=== PATIENT | male | born 1955 | race Caucasian/White ===

== ENCOUNTER 2021-10-15 14:46 | Inpatient (IN) | payer MEDICARE, SELFPAY ==
[2021-10-15] VITALS (11 sets, daily range): BP systolic 190–202; BP diastolic 110–115; PULSE 64–88; RESP 18–24; TEMP 36.6–36.9; O2SAT 93–97; BMI 35.4; BMI 37.8
--- NOTE | 2021-10-15 14:54 | ED_ITS ---
HPI - General Adult General: Chief complaint: Shortness of Breath/Dyspnea Stated complaint: ELEVATED BLOOD PRESSURE Time Seen by Provider: 10/15/21 14:50 History of Present Illness: Mr. Jones is a 66-year-old gentleman with significant past medical history of COPD, LUZ MARIA, hypertension, hyperlipidemia who presents to the emergency department due to various concerns. His primary concern is that his blood pressure has been high the past few days. He reports compliance with his medication regimen however has had blood pressure readings at home of greater than 230 systolic. He may have had a recent change in medication due to an interaction that was somewhat vague on details. Xavier tionally he notes increased falls, confusion, and generalized worsening of shortness of breath. He does not have a baseline oxygen requirement and is exposed to wood smoke for heat which flares his lung disease. He notes worsening symptoms on exertion. Overall course of symptoms has been worsening. Intensity is moderate. Cough has been mildly productive. Some improvement with albuterol though patient is no longer on his Symbicort.. No other specific changes in health, exacerbating, or alleviating factors identified. Onset (ago): day(s) Severity: moderate Review of Systems General: Reports: 10 or more systems reviewed and unremarkable except in HPI and below PFSH ED PFSH: Medical History COPD (chronic obstructive pulmonary disease) HLD (hyperlipidemia) HTN (hypertension) LUZ MARIA (obstructive sleep apnea) Smoking addiction Surgical History Hx of tonsillectomy Family History Mother CAD (coronary artery disease) Diabetes Social History Smoking and tobacco status: current every day smoker Alcohol intake: current Alcohol intake frequency: few times a week Substance/Drug Use: current Substance/Drug use type: Marijuana Lives independently: Yes Household members: spouse Housing: Other Details: [facility] Marital status: Physical Exam Const: COMMON NORMALS: alert GENERAL APPEARANCE: cooperative, well developed and ill appearing (Chronically) HENMT: COMMON NORMALS: normocephalic and atraumatic HEAD & SCALP: normocephalic and atraumatic OTHER: Dry mucous membranes Eye: COMMON NORMALS: conjunctivae normal CONJUNCTIVA: Yes conjunctivae normal SCLERA: sclerae normal Neck/C-Spine: COMMON NORMALS: supple GENERAL: Yes trachea midline Resp: EFFORT & INSPECTION: Yes tachypneic AUSCULTATION: diminished lung sounds Cardio: COMMON NORMALS: regular rate and regular rhythm RATE: regular rate RHYTHM: regular rhythm GI: COMMON NORMALS: Soft to palpation PALPATION: Yes Soft to palpation and No Tenderness to palpation present (GI) PERCUSSION: normal to percussion OTHER: Umbilical hernia soft without overlying skin changes, easily reducible Extremity: GENERAL: Yes normal exam except as noted and No edema Neuro: COMMON NORMALS: moves all extremities SENSORIUM/ORIENTATION: Yes alert and No Orientation impaired Psych: COMMON NORMALS: mental status grossly normal and Normal thought process present THOUGHT PROCESS: Normal thought process present Course ED course: - Patient was seen and evaluated by me at bedside - Patient placed on cardiac monitors, IV access obtained - Initial evaluation notable for exam as above - Labs and xrays personally interpreted by me. EKG from 1813 and 1500 pers onally interpreted by me showing sinus rhythm with right bundle branch block. No STEMI. - RT treatment ordered. COPD exacerbation treatment ordered. - Labs notable for no leukocytosis, normal hemoglobin. Metabolic panel without acute electrolyte derangement, perhaps mild intravascular dehydration. ABG on 3 L nasal cannula notable for hypoxemia. - Imaging notable for no lobar consolidation or pneumothorax - Upon serial reexamination after treatment the patient was somewhat improved though still remains tachypneic and requiring supplemental oxygen with oxygen is a saturation to mid to high 80s without supplemental oxygen. - Based on patient history, evaluation, and testing as interpreted the most likely cause of the patient's condition is COPD exacerbation - The results of ED evaluation were discussed with the patient including plan for admission due to requirement for level of care not available if discharged to prevent significant worsening/deterioration. - Admitting service was contacted and Dr Franco with the hospitalist service agreed to admit the patient - Patient was admitted without further deterioration or significant events. Note: Click bubbles or prepopulated ayala in note writing are used for assistance with data collection and billing and are inherently more limited than narrative and other text portions of this note. Please use narrative for additional clinical history and defer to narrative/free test for any case of contradictory information. If information appears in only free text or click bubble it should be considered present or absent as reported. Please contact note journalists and other writers for clarifications of clinical information or contradictory information. MDM is a brief summary, contradictory or erroneous seeming information should be clarified and full note should be reviewed. Vital Signs: Vital signs: Vital Signs Temperature 98.4 F 10/15/21 20:09 Pulse Rate 80 10/15/21 20:09 Respiratory Rate 18 10/15/21 20:09 Blood Pressure 202/110 10/15/21 20:09 Pulse Oximetry 97 10/15/21 20:09 MDM - General Adult Medical Decision Making 66-year-old gentleman with history of COPD and exposure to environmental triggers presenting with shortness of breath and new oxygen requirement. Additional concern regarding high blood pressure despite medication at home. Labs without evidence of endorgan dysfunction. No evidence of infection. Treated for COPD exacerbation and due to new oxygen requirement requires admission for further treatment. Medical Records I reviewed the patient's medical records. Lab Data I reviewed the patient's lab results. : 10/15/21 15:09 10/15/21 15:09 Radiology Impressions Chest X-Ray 10/15/21 15:00 IMPRESSION: No acute findings. Head CT 10/15/21 15:00 IMPRESSION: 1. No acute intracranial abnormality. 2. Moderate diffuse cerebral atrophy and sequela of chronic small vessel ischemic disease. 3. Enlargement of the pituitary gland. Findings could be indicative of a macroadenoma or hyperplasia. This can be further characterized with pituitary protocol MRI as clinically indicated. Laboratory Results WBC 6.5 10^3/uL (4.0-10.0) 10/15/21 15:09 RBC 4.19 10^6/uL (4.1-5.3) 10/15/21 15:09 Hgb 13.4 g/dL (11.7-16.6) 10/15/21 15:09 Hct 41.5 % (42.0-52.0) L 10/15/21 15:09 MCV 99.0 fl (80-94) H 10/15/21 15:09 MCH 32.0 pg (28.0-34.0) 10/15/21 15:09 MCHC 32.3 g/dL (30.0-36.0) 10/15/21 15:09 RDW 15.9 % (12.1-15.1) H 10/15/21 15:09 Plt Count 402 10^3/cmm (130-400) H 10/15/21 15:09 MPV 9.5 fL (7.4-10.4) 10/15/21 15:09 Neut % (Auto) 59.5 % 10/15/21 15:09 Lymph % (Auto) 30.0 % 10/15/21 15:09 [place] % (Auto) 6.7 % 10/15/21 15:09 Eos % (Auto) 2.9 % 10/15/21 15:09 Baso % (Auto) 0.6 % 10/15/21 15:09 Neut # (Auto) 3.89 10^3/uL (1.8-7.7) 10/15/21 15:09 Lymph # (Auto) 2.0 10^3/uL (0.8-4.8) 10/15/21 15:09 [place] # (Auto) 0.4 10^3/uL (0.2-0.9) 10/15/21 15:09 Eos # (Auto) 0.2 10^3/uL (0.0-0.8) 10/15/21 15:09 Baso # (Auto) 0.0 10^3/uL (0.0-0.1) 10/15/21 15:09 Nucleated RBC % (auto) 0 % 10/15/21 15:09 Nucleated RBCs # 0.0 /100WBC 10/15/21 15:09 Specimen Type Arterial 10/15/21 15:54 Sample Site Brachial, left 10/15/21 15:54 ABG pH 7.40 (7.35-7.45) 10/15/21 15:54 ABG pCO2 37.7 mmHg (35-45) 10/15/21 15:54 ABG pO2 62.8 mmHg (80.0-100.0) L 10/15/21 15:54 ABG HCO3 23.5 mmol/L (22-26) 10/15/21 15:54 ABG O2 Saturation 92.3 10/15/21 15:54 ABG Base Excess -1.0 mmol/L (-2.0-2.0) 10/15/21 15:54 Yehuda Test N/a 10/15/21 15:54 A-a O2 Gradient 5.2 mmHg (5-10) 10/15/21 15:54 Hematocrit 40.7 % (42-52) L 10/15/21 15:54 Hgb O2 Saturation 87.0 % (95-100) L 10/15/21 15:54 Carboxyhemoglobin 4.9 %THgb (0.4-20.1) 10/15/21 15:54 Methemoglobin 0.9 % (0.4-1.5) 10/15/21 15:54 Total Hemoglobin 13.3 g/dL (14-18) L 10/15/21 15:54 Sodium 138.0 mmol/L (131-143) 10/15/21 15:54 Potassium 3.9 mmol/L (3.5-5.0) 10/15/21 15:54 Glucose 99.0 mg/dL (70-115) 10/15/21 15:54 Ionized Calcium 1.2 mmol/L (1.1-1.4) 10/15/21 15:54 O2 Delivery Device Nc 10/15/21 15:54 O2 Liters/Min 3.0 % 10/15/21 15:54 Refractory Repairer ID Kennedy 10/15/21 15:54 Sodium 136 mmol/L (136-145) 10/15/21 15:09 Potassium 4.1 mmol/L (3.5-5.1) 10/15/21 15:09 Chloride 100 mmol/L (98-107) 10/15/21 15:09 Carbon Dioxide 20 mmol/L (22-29) L 10/15/21 15:09 Anion Gap 20.1 (5-19) H 10/15/21 15:09 BUN 11 mg/dL (8-23) 10/15/21 15:09 Creatinine 0.8 mg/dL (0.7-1.2) 10/15/21 15:09 GFR Calculation 96.7 mL/min (90-130) 10/15/21 15:09 Glucose 87 mg/dL (65-115) 10/15/21 15:09 POC Glucose 111 mg/dL (70-110) H 10/15/21 15:23 Calculated Osmolality 281 mOsm/kg (285-295) L 10/15/21 15:09 Calcium 8.7 mg/dL (8.5-10.5) 10/15/21 15:09 Total Bilirubin 0.3 mg/dL (0.15-1.2) 10/15/21 15:09 AST 18 U/L (0-40) 10/15/21 15:09 ALT 15 U/L (0-41) 10/15/21 15:09 Alkaline Phosphatase 66 IU/L (40-130) 10/15/21 15:09 Ammonia 23 umol/L (16-60) 10/15/21 15:38 Troponin T Baseline 13 ng/L (0-15) 10/15/21 15:09 Troponin T 120 Minute 12.44 ng/L (0-15) 10/15/21 16:59 Delta Troponin T -0.56 ABS# (0-10) L 10/15/21 16:59 NT-Pro-B Natriuret Pep 635 pg/mL (0-125) H 10/15/21 15:09 Total Protein 7.4 g/dL (6.6-8.7) 10/15/21 15:09 Albumin 4.4 g/dL (3.5-5.2) 10/15/21 15:09 Globulin 3.0 g/dL (1.3-4.6) 10/15/21 15:09 TSH 1.47 uIU/mL (0.27-4.20) 10/15/21 15:09 Discharge Plan Discharge Patient Disposition: Placed in Observation Admit Provider: Abel Franco Clinical Impression: Acute exacerbation of chronic obstructive airways disease, Acute respiratory failure with hypoxemia Coding Level of Care Code ED Kiln Stoker for Chg Fwd Exam Comprehensive
--- NOTE | 2021-10-15 15:00 | CTR_ITS ---
PROCEDURE INFORMATION: Exam: CT Head Without Contrast Exam date and time: 10/15/2021 3:47 PM Age: 66 years old Clinical indication: Altered mental status/memory loss; Additional info: AMS, hypertension TECHNIQUE: Imaging protocol: Computed tomography of the head without contrast. Radiation optimization: All CT scans at this facility use at least one of these dose optimization techniques: automated exposure control; mA and/or kV adjustment per patient size (includes targeted exams where dose is matched to clinical indication); or iterative reconstruction. COMPARISON: No relevant prior studies available. RADIATION DOSE METRICS: Total DLP (mGy-cm): 1016.97 FINDINGS: Brain: No hemorrhage. Moderate diffuse cerebral atrophy and sequela of chronic small vessel ischemic disease. Enlargement of the pituitary gland measuring up to 2 cm in height. Cerebral ventricles: No ventriculomegaly. Paranasal sinuses: Visualized sinuses are unremarkable. No fluid levels. Mastoid air cells: Visualized mastoid air cells are well aerated. Bones/joints: Unremarkable. No acute fracture. Soft tissues: Unremarkable. CT/CT head wo con* [id number] IMPRESSION: 1. No acute intracranial abnormality. 2. Moderate diffuse cerebral atrophy and sequela of chronic small vessel ischemic disease. 3. Enlargement of the pituitary gland. Findings could be indicative of a macroadenoma or hyperplasia. This can be further characterized with pituitary protocol MRI as clinically indicated.
--- NOTE | 2021-10-15 15:00 | XRR_ITS ---
PROCEDURE INFORMATION: Exam: XR Chest Exam date and time: 10/15/2021 3:16 PM Age: 66 years old Clinical indication: Other: AMS TECHNIQUE: Imaging protocol: XR of the chest. Views: 1 view. COMPARISON: No relevant prior studies available. FINDINGS: Lungs: Unremarkable. No consolidation. Pleural spaces: Unremarkable. No pleural effusion. No pneumothorax. Heart/Mediastinum: Unremarkable. No cardiomegaly. Bones/joints: Severe DJD of both glenohumeral joints. Visualized osseous structures are intact. XR/XR chest 1V portable [id number] IMPRESSION: No acute findings.
--- NOTE | 2021-10-15 15:01 | ECG_ITS ---
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 Measurements Intervals [place] Rate: 76 P: 28 GA: 181 QRS: -78 QRSD: 150 T: 26 QT: 421 QTc: 475 Interpretive Statements SINUS RHYTHM LEFT AXIS DEVIATION [QRS AXIS < -30] RIGHT BUNDLE BRANCH BLOCK [120+ ms QRS DURATION, UPRIGHT V1, 40+ ms S IN I/aVL/V4/V5/V6] POSSIBLE SEPTAL MYOCARDIAL INFARCTION , PROBABLY OLD [30 ms Q WAVE IN V1/V2] No previous ECG available for comparison Electronically Signed On 10-17-2021 7:30:40 CDT by Michelle aCmp M.D. [id number]
[2021-10-15 15:26] LABS: Glucose Point of Care 111 mg/dL (70-110)
[2021-10-15 15:34] LABS: Basophils % 0.6 %; Eosinophils # 0.2 10^3/uL (0.0-0.8); Eosinophils % 2.9 %; Hematocrit 41.5 % (42.0-52.0); Hemoglobin 13.4 g/dL (11.7-16.6); Mean Corpuscular HGB Conc 32.3 g/dL (30.0-36.0); Mean Platelet Volume 9.5 fL (7.4-10.4); Monocytes # 0.4 10^3/uL (0.2-0.9); Monocytes % 6.7 %; Neutrophils # 3.89 10^3/uL (1.8-7.7); Neutrophils % 59.5 %; Nucleated Red Blood Cells % 0 %; Platelet Count 402 10^3/cmm (130-400); Red Blood Count 4.19 10^6/uL (4.1-5.3); Red Cell Distribution Width 15.9 % (12.1-15.1); White Blood Count 6.5 10^3/uL (4.0-10.0)
[2021-10-15 16:00] LABS: Ammonia 23 umol/L (16-60)
[2021-10-15 16:03] LABS: ABG PCO2 37.7 mmHg (35-45); Alveolar-Arterial Oxygen Gradi 5.2 mmHg (5-10); Arterial Blood Gas Hematocrit 40.7 % (42-52); Blood Gas Sample Site Brachial, left; Blood Gas Sample Type Arterial; Carboxyhemoglobin 4.9 %THgb (0.4-20.1); HCO3 ABG 23.5 mmol/L (22-26); Ionized Calcium Level - ABG 1.2 mmol/L (1.1-1.4); Methemoglobin 0.9 % (0.4-1.5); Oxygen Device NC; Oxygen Saturation ABG 92.3; PO2 ABG 62.8 mmHg (80.0-100.0); Potassium Level - ABG 3.9 mmol/L (3.5-5.0); Total Hemoglobin 13.3 g/dL (14-18)
[2021-10-15] MEDS: ipratropium-albuterol 3 mL Neb INHALATION ×2 (16:07→21:01)
[2021-10-15 16:14] LABS: Troponin(5th) Baseline 13 ng/L (0-15)
[2021-10-15 16:21] LABS: Alanine Aminotransferase 15 U/L (0-41); Albumin Level 4.4 g/dL (3.5-5.2); Alkaline Phosphatase 66 IU/L (40-130); Aspartate Amino Transferase 18 U/L (0-40); Blood Urea Nitrogen 11 mg/dL (8-23); Calcium 8.7 mg/dL (8.5-10.5); Carbon Dioxide 20 mmol/L (22-29); Chloride 100 mmol/L (98-107); Creatinine Clr Calc Pharmacy 90.4794; Glomerular Filtration Rate 96.7 mL/min (90-130); Glucose 87 mg/dL (65-115); NT Pro B Type Natriuretic Pept 635 pg/mL (0-125); Osmolality Calculated 281 mOsm/kg (285-295); Sodium 136 mmol/L (136-145); Thyroid Stimulating Hormone 1.47 uIU/mL (0.27-4.20); Total Bilirubin 0.3 mg/dL (0.15-1.2); Total Protein 7.4 g/dL (6.6-8.7)
[2021-10-15 16:24] LABS: Anion Gap 20.1 (5-19); Potassium 4.1 mmol/L (3.5-5.1)
--- NOTE | 2021-10-15 17:01 | ECG_ITS ---
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 Measurements Intervals [place] Rate: 69 P: 31 MD: 190 QRS: -73 QRSD: 150 T: 126 QT: 452 QTc: 485 Interpretive Statements SINUS RHYTHM RIGHT BUNDLE BRANCH BLOCK LEFT ANTERIOR FASCICULAR BLOCK MODERATE T-WAVE ABNORMALITY, CONSIDER LATERAL ISCHEMIA Compared to ECG 10/15/2021 15:00:32 Left anterior fascicular block now present T-wave abnormality now present Possible ischemia now present Left-axis deviation no longer present Myocardial infarct finding no longer present Electronically Signed On 10-17-2021 7:49:30 CDT by Michelle Camp M.D. [id number]
[2021-10-15 17:21] LABS: Troponin 5 2HR 12.44 ng/L (0-15)
[2021-10-15 17:31] LABS: Troponin 5 2HR Delta -0.56 ABS# (0-10)
[2021-10-15] MEDS: doxycycline 100 MG in sodium chloride 0.9% (plus) 100 ML IV (17:50)
[2021-10-15 18:19] LABS: Add Urine Microscopic? YES; Bilirubin Urine Neg (Negative); Blood Urine 2+ (Negative); Glucose Urine UA Norm (Normal); Ketones Urine Negative (Negative); Leukocyte Esterase Urine Negative (Negative); Nitrate Urine Negative (Negative); Protein Urine Neg (Negative); Specific Gravity, Urine 1.015 (1.005-1.030); Urine Appearance Clear (CLEAR); Urine Color Yellow (Yellow); Urobilinogen Urine Norm (Negative); pH Urine 5 (5-7)
[2021-10-15 18:20] LABS: Squamous Epithelial Cell Urine RARE /hpf (0-5)
[2021-10-15 18:22] LABS: Add Urine Culture? No
--- NOTE | 2021-10-15 18:45 | PC.NURSE ---
INFROMED DR. JIANG OF BP OF 195/ HE VERBALIZED UNDERSTANDING NO FURTHER NEEDS.
--- NOTE | 2021-10-15 18:46 | PC.NURSE ---
attempted to call report. Nurse not available
--- NOTE | 2021-10-15 19:46 | PM.HP ---
Providers/Chief Complaint Admitting Physician: Abel Franco Chief Complaint: ELEVATED BLOOD PRESSURE History of Present Illness 66-year-old gentleman with history of COPD, long-term smoker, HTN, HLD, diabetes, LUZ MARIA, not normally on oxygen, has stopped using the CPAP machine due to feeling unwell while using it in the [facility] where he is currently living, where he uses a wood stove for heat, reports has been recently getting much more short of breath, with cough productive of yellowish/green sputum, will difficulty walking up the hill where he lives currently. Reports his blood pressures have been high recently. He has been running out of medications. States he has been having difficult time managing things at where he lives. Has also been at odds with his , and states that his family also stated they do not want anything to do with him. Because of this he has also been feeling depressed. He reports he has history of depression, in the past used to be on Zoloft, but is no longer taking the medication. States he has had thoughts of fear of dying, but denies suicidal ideation, but has had racing thoughts, and has been feeling depressed. Says he would tell someone in case he had any thoughts of self-harm or ending his life. In ER he is found to be hypoxic, requiring 3 L oxygen by nasal cannula with noted PO2 of 62, with tachypnea initially in the 30s, with some improvement with breathing treatment, he also received IV steroid, doxycycline. However, still dyspneic, especially with exertion. Says that when he lived in [place] a doctor there used to stress test him every 6 months. Review of Systems Const: Reports: fatigue; Denies: fever(s), chills, body aches or malaise Eyes: Denies: change in vision, eye discomfort or eye redness ENMT: Denies: throat pain, oral sores or ear or mastoid pain Card: Reports: dyspnea on exertion; Denies: chest pain, edema or pre-syncope Resp: Reports: dyspnea, productive cough and change in phlegm color; Denies: hemoptysis GI: Denies: abdominal pain, nausea, vomiting, diarrhea, constipation, hematochezia or melena : Denies: flank pain, difficulty urinating, urinary frequency or hematuria Musc: Denies: back pain, joint swelling or joint redness Skin/Breast: Denies: rash or new lesions Neuro: Denies: headache(s), numbness in extremities, weakness in extremities, dizziness, confusion or seizure-like activity Endo: Denies: polyuria or polydipsia Ryan/Lymph: Denies: easy bleeding or tender lymph nodes All/Imm: Denies: urticaria or tongue swelling Medications/Allergies Home Medications Medication Instructions Recorded Confirmed Last Taken Type albuterol sulfate 90 mcg/actuation 2 puff INHALATION Q4H PRN 10/15/21 10/15/21 Unknown History aerosol inhaler ascorbic acid (vitamin C) 500 mg 500 mg PO DAILY 10/15/21 10/15/21 Unknown History tablet (Vitamin C) aspirin 325 mg tablet 650 mg PO Q6H PRN 10/15/21 10/15/21 Unknown History budesonide-formoterol HFA 160 1 puff INHALATION BID 10/15/21 10/15/21 Unknown History mcg-4.5 mcg/actuation aerosol inhaler (Symbicort) clonidine HCl 0.1 mg tablet 0.1 mg PO TID 10/15/21 10/15/21 Unknown History levocetirizine 5 mg tablet 5 mg PO DAILY 10/15/21 10/15/21 Unknown History lisinopril 40 mg tablet 40 mg PO DAILY 10/15/21 10/15/21 Unknown History Allergies Allergy/AdvReac Type Severity Reaction Status Date / Time Icgaloc-DYA-AmW Reductase Allergy Unknown Verified 10/15/21 14:48 Inhibitor PFSH Acute PFSH: Medical History COPD (chronic obstructive pulmonary disease) HLD (hyperlipidemia) HTN (hypertension) LUZ MARIA (obstructive sleep apnea) Smoking addiction Surgical History Hx of tonsillectomy Family History Mother CAD (coronary artery disease) Diabetes Social History Smoking and tobacco status: current every day smoker Alcohol intake: current Alcohol intake frequency: few times a week Substance/Drug Use: current Substance/Drug use type: Marijuana Lives independently: Yes Household members: spouse Housing: Other Details: [facility] Marital status: Vitals/I&O/Wt Last Vital Signs Temp 97.9 F 10/15/21 14:49 Pulse 65 10/15/21 16:14 Resp 18 10/15/21 16:08 BP 195/115 10/15/21 18:45 Pulse Ox 97 10/15/21 16:08 10/15/21 10/15/21 10/15/21 06:59 14:59 22:59 Intake Total 100 / 100 Balance 100 / 100 Weight last 48 hrs Weight 90.718 kg Physical Exam Const: COMMON NORMALS: alert GENERAL APPEARANCE: cooperative and disheveled NUTRITIONAL APPEARANCE: obese ORIENTATION/CONSCIOUSNESS: Yes awake HENMT: COMMON NORMALS: normocephalic, EAC's normal, Normal external nose present and moist oral mucous membranes HEAD & SCALP: normocephalic NOSE: Normal external nose present EXTERNAL AUDITORY CANAL: EAC's normal Neck/C-Spine: COMMON NORMALS: no meningeal signs Chest: CHEST: Yes Symmetrical chest wall rise Resp: AUSCULTATION: diminished lung sounds Cardio: COMMON NORMALS: regular rate, regular rhythm and No murmurs present (Cardio) RATE: regular rate RHYTHM: regular rhythm GI: COMMON NORMALS: Normal to inspection, nondistended, normoactive bowel sounds present, Soft to palpation and non-tender INSPECTION: Yes other (Paramedian lower abdominal hernia) PALPATION: Yes Soft to palpation (Including hernia) Extremity: COMMON NORMALS: no pedal edema Neuro: COMMON NORMALS: moves all extremities SENSORIUM/ORIENTATION: Yes alert MENINGEAL SIGNS: Yes no meningeal signs Psych: COMMON NORMALS: mental status grossly normal Skin: COMMON NORMALS: no wounds NARRATIVE SKIN EXAM: Skin smeared with soot. Dirty clothes. Dirt on arms, legs, long fingernails and toenails. RASHES: no rashes Data : 10/15/21 15:09 10/15/21 15:09 A&P Assessment and plan (1) Acute respiratory failure with hypoxemia: Continue doxycycline, IV steroids for now, breathing treatments, collect sputum culture. Oxygen support, wean down as tolerated. He does not normally use oxygen, however, he may be needing it. Certainly wood-burning furnace at home, smoking are not helping. Check D-dimer. COVID PCR has been requested as well. Status: Acute (2) Acute exacerbation of chronic obstructive airways disease: As above. Status: Acute (3) COPD (chronic obstructive pulmonary disease): He states he is trying to get out to see pulmonology. May need oxygen at discharge. He lives in a camper with wood-burning furnace. Cooks with propane. States he would like to try to moved to the city to a senior citizens apartment. We will request case management consultation. Status: Acute (4) LUZ MARIA (obstructive sleep apnea): He has been intolerant of CPAP recently due to smoke. Stopped using it, but plans to resume using it in the future. Status: Acute (5) Smoking addiction: Discussed smoking cessation for 7 minutes. He states he has previously tried Wellbutrin and Chantix without success. Continue to encourage cessation. Will provide nicotine replacement. Status: Acute (6) Pituitary gland enlarged: Incidentally noted pituitary enlargement on CT head. Did not have time to visit this incidental finding currently. Please discuss prior to discharge, refer for additional work-up depending on goals of care. Status: Acute (7) Microscopic hematuria: Consider repeat UA to confirm resolution of hematuria, otherwise consider referral for additional work-up to exclude malignancy depending on goals of care. Status: Acute (8) Depression: He has recently been depressed, at odds with his family who he states do not want to see him. Denies suicidal ideation. He is not following with [facility], would recommend follow-up after discharge. He has tolerated Zoloft in the past, will restart medication. Status: Acute (9) HTN (hypertension): Elevated blood pressure in ER. He states he has not taken any of his medications today. He is running out of clonidine, he does have some lisinopril left. States he has had to take extra doses of medications due to blood pressures running high. Resume home medicines. Monitor blood pressure. Cardiac diet. Status: Acute (10) Exertional dyspnea: With frequent falls recently. Some confusion. In addition to COPD for which he may require oxygen, consider also referral for nonurgent stress testing. He denies history of stenting or RI in himself, but reports history of cardiovascular disease in the family, is also a long-term smoker with additional risk factors. PT, OT assessment. TSH is normal. Status: Acute Plan HLD Abdominal wall hernia Attestations Medical Necessity Statement*: Place in observation for additional assessment management of hypoxic respite failure, COPD exacerbation, exertional intolerance. Coding Level of Care Code Acute Facility Rehab Director for Chg Fwd Diagnoses Acute respiratory failure with hypoxemia J96.01 COPD (chronic obstructive pulmonary disease) J44.9 LUZ MARIA (obstructive sleep apnea) G47.33 Smoking addiction F17.200 Acute exacerbation of chronic obstructive airways disease J44.1 Pituitary gland enlarged E23.6 Microscopic hematuria R31.29 Depression F32.A HTN (hypertension) I10 Exertional dyspnea R06.00
--- NOTE | 2021-10-15 21:01 | ECG_ITS ---
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 Measurements Intervals [place] Rate: 80 P: 28 PA: 192 QRS: -79 QRSD: 149 T: 85 QT: 427 QTc: 495 Interpretive Statements SINUS RHYTHM RIGHT BUNDLE BRANCH BLOCK [120+ ms QRS DURATION, UPRIGHT V1, 40+ ms S IN I/aVL/V4/V5/V6] LEFT ANTERIOR FASCICULAR BLOCK [QRS AXIS <= -45, QR IN I, RS IN II] POSSIBLE ANTERIOR MYOCARDIAL INFARCTION , PROBABLY OLD [30 ms Q WAVE IN V3/V4, OR R < 0.2 mV IN V4] Compared to ECG 10/15/2021 18:13:13 Myocardial infarct finding now present T-wave abnormality no longer present Possible ischemia no longer present Electronically Signed On 10-17-2021 7:48:38 CDT by Michelle Camp M.D. [id number]
[2021-10-15] MEDS: cloNIDine 0.1 mg Tablet PO (21:03)
[2021-10-15] MEDS: enoxaparin 40 mg/0.4 mL Syringe SUBCUT (21:04)
[2021-10-15 21:43] LABS: Troponin 5 6HR 10.37 ng/L (0-15)
[2021-10-15 21:45] LABS: D Dimer 1.36 ug/mIFEU (0-0.59)
[2021-10-16] VITALS (18 sets, daily range): BP systolic 134–193; BP diastolic 67–115; PULSE 82–101; RESP 16–20; TEMP 36.5–37.2; O2SAT 90–97
[2021-10-16] MEDS: hyDRALAzine 20 mg/mL INJ 1 mL 10 MG IVP (00:45)
[2021-10-16] MEDS: acetaminophen 325 mg Tablet 650 MG PO ×2 (02:51→21:14)
[2021-10-16] MEDS: ipratropium-albuterol 3 mL Neb INHALATION ×3 (03:42→15:09)
[2021-10-16 04:58] LABS: Basophils % 0.1 %; Hematocrit 42.5 % (42.0-52.0); Hemoglobin 13.9 g/dL (11.7-16.6); Lymphocytes # 0.7 10^3/uL (0.8-4.8); Lymphocytes % 8.5 %; Mean Corpuscular HGB Conc 32.7 g/dL (30.0-36.0); Mean Corpuscular Hemoglobin 31.7 pg (28.0-34.0); Mean Platelet Volume 9.2 fL (7.4-10.4); Monocytes # 0.1 10^3/uL (0.2-0.9); Monocytes % 0.6 %; Neutrophils # 7.02 10^3/uL (1.8-7.7); Neutrophils % 90.3 %; Nucleated Red Blood Cells % 0 %; Platelet Count 407 10^3/cmm (130-400); Red Blood Count 4.38 10^6/uL (4.1-5.3); Red Cell Distribution Width 15.7 % (12.1-15.1); White Blood Count 7.8 10^3/uL (4.0-10.0)
[2021-10-16 05:09] LABS: Alanine Aminotransferase 15 U/L (0-41); Albumin Level 4.4 g/dL (3.5-5.2); Alkaline Phosphatase 66 IU/L (40-130); Anion Gap 19.2 (5-19); Aspartate Amino Transferase 17 U/L (0-40); Blood Urea Nitrogen 16 mg/dL (8-23); Calcium 8.7 mg/dL (8.5-10.5); Carbon Dioxide 22 mmol/L (22-29); Chloride 99 mmol/L (98-107); Globulin 3.4 g/dL (1.3-4.6); Glomerular Filtration Rate 84.4 mL/min (90-130); Glucose 195 mg/dL (65-115); Osmolality Calculated 289 mOsm/kg (285-295); Potassium 4.2 mmol/L (3.5-5.1); Sodium 136 mmol/L (136-145); Total Bilirubin 0.2 mg/dL (0.15-1.2); Total Protein 7.8 g/dL (6.6-8.7)
[2021-10-16] MEDS: doxycycline 100 MG in sodium chloride 0.9% (plus) 100 ML IV ×2 (05:14→17:39)
[2021-10-16 05:28] LABS: Slide Review Slide Review Perform
[2021-10-16 06:32] LABS: Glucose Point of Care 136 mg/dL (70-110)
[2021-10-16] MEDS: pantoprazole DR 40 mg Tablet PO (09:18)
[2021-10-16] MEDS: cloNIDine 0.1 mg Tablet PO ×3 (09:18→21:15)
[2021-10-16] MEDS: sertraline 50 mg Tablet PO (09:18)
[2021-10-16] MEDS: lisinopril 20 mg Tablet 40 MG PO (09:18)
[2021-10-16] MEDS: nicotine 21 mg Patch 1 PATCH TRANSDERMA (09:22)
[2021-10-16 11:20] LABS: Glucose Point of Care 198 mg/dL (70-110)
[2021-10-16] MEDS: guaiFENesin 600 mg Tablet PO ×2 (12:31→17:39)
[2021-10-16] MEDS: hyDRALAzine 25 mg Tablet PO ×3 (12:31→21:15)
[2021-10-16] MEDS: fluticasone nasal spray 16gm Btl 1 SPRAY NASAL ×2 (12:31→17:38)
--- NOTE | 2021-10-16 13:18 | P.PN_ITS ---
Subjective Subjective: Patient was seen this morning, he tells me he is doing a lot better, but he continues to have a lot of mucus production, he wants to try Flonase, Mucinex, he is also worried about his elevated blood pressures, he tells me that is albuterol is helping Vitals/I&O/Wt Last Vital Signs Temp 97.7 F 10/16/21 11:44 Pulse 101 H 10/16/21 11:44 Resp 17 10/16/21 11:44 BP 146/106 10/16/21 11:44 Pulse Ox 93 10/16/21 11:44 10/15/21 10/16/21 10/16/21 22:59 06:59 14:59 Intake Total 580 / 580 240 / 240 Balance 580 / 580 240 / 240 Weight last 48 hrs Weight 90.718 kg Weight 96.7 kg Weight 90.718 kg Physical Exam Const: COMMON NORMALS: no acute distress and patient oriented x3 Resp: COMMON NORMALS: normal respiratory effort, No retractions and No use of accessory muscles AUSCULTATION: wheezes Cardio: COMMON NORMALS: regular rate, regular rhythm, S1 normal heart sound present and S2 normal heart sound present RATE: regular rate RHYTHM: regular rhythm HEART SOUNDS: S1 normal heart sound present and S2 normal heart sound present GI: COMMON NORMALS: Normal to inspection, nondistended, normoactive bowel sounds present, Soft to palpation and non-tender PALPATION: Yes Soft to palpation Extremity: COMMON NORMALS: no pedal edema Neuro: COMMON NORMALS: patient oriented x3 Psych: COMMON NORMALS: mental status grossly normal Data : 10/16/21 04:40 10/16/21 04:40 A&P Assessment and plan (1) Acute respiratory failure with hypoxemia: Continue doxycycline, IV steroids for now, breathing treatments, collect sputum culture. Oxygen support, wean down as tolerated. He does not normally use oxygen, however, he may be needing it. Certainly wood-burning furnace at home, smoking are not helping. D-dimer 1.39, as he is clinically improving, I think he has a low likelihood of having a pulm emboli COVID PCR, patient refuses testing. Status: Acute (2) Acute exacerbation of chronic obstructive airways disease: As above. Status: Acute (3) COPD (chronic obstructive pulmonary disease): He states he is trying to get out to see pulmonology. May need oxygen at discharge. He lives in a camper with wood-burning furnace. Cooks with propane. States he would like [place] to [place] the city to a senior citizens apartment. We will request case management consultation. Continue breathing treatments, continue Solu-Medrol Status: Acute (4) LUZ MARIA (obstructive sleep apnea): He has been intolerant of CPAP recently due to smoke. Stopped using it, but plans to resume using it in the future. Status: Acute (5) Smoking addiction: Discussed smoking cessation for 7 minutes. He states he has previously tried Wellbutrin and Chantix without success. Continue to encourage cessation. Will provide nicotine replacement. Status: Acute (6) Pituitary gland enlarged: Incidentally noted pituitary enlargement on CT head. Did not have time to visit this incidental finding currently. Please discuss prior to discharge, refer for additional work-up depending on goals of care. Status: Acute (7) Microscopic hematuria: Consider repeat UA to confirm resolution of hematuria, otherwise consider referral for additional work-up to exclude malignancy depending on goals of care. Status: Acute (8) Depression: He has recently been depressed, at odds with his family who he states do not want to see him. Denies suicidal ideation. He is not following with [facility], would recommend follow-up after discharge. He has tolerated Zoloft in the past, will restart medication. Status: Acute (9) HTN (hypertension): Elevated blood pressure in ER. He states he has not taken any of his medications today. He is running out of clonidine, he does have some lisinopril left. States he has had to take extra doses of medications due to blood pressures running high. Resume home medicines. Monitor blood pressure. Cardiac diet. Added hydralazine to blood pressure medications Status: Acute (10) Exertional dyspnea: With frequent falls recently. Some confusion. In addition to COPD for which he may require oxygen, consider also referral for nonurgent stress testing. He denies history of stenting or [place] in himself, but reports history of cardiovascular disease in the family, is also a long-term smoker with additional risk factors. PT, OT assessment. TSH is normal. Status: Acute Plan HLD Abdominal wall hernia Attestations Medical Necessity Statement*: Patient requires hospitalization for acute respiratory failure with hypoxia Coding Level of Care Code Acute Vehicle Operator for Chg Fwd Diagnoses Acute respiratory failure with hypoxemia J96.01 Acute exacerbation of chronic obstructive airways disease J44.1 COPD (chronic obstructive pulmonary disease) J44.9 LUZ MARIA (obstructive sleep apnea) G47.33 Smoking addiction F17.200 Pituitary gland enlarged E23.6 Microscopic hematuria R31.29 Depression F32.A HTN (hypertension) I10 Exertional dyspnea R06.00
[2021-10-16] MEDS: NON-FORMULARY MEDICATION (Levocetirizine 5 mg tablet) 5 EACH PO (16:15)
--- NOTE | 2021-10-16 16:20 | PC.NURSE ---
patient had levocetirizene here in home medications
[2021-10-16 17:24] LABS: Glucose Point of Care 170 mg/dL (70-110)
[2021-10-16] MEDS: enoxaparin 40 mg/0.4 mL Syringe SUBCUT (21:14)
[2021-10-17] VITALS (19 sets, daily range): BP systolic 160–189; BP diastolic 78–124; PULSE 79–105; RESP 16–20; TEMP 36.7–37; O2SAT 92–99
[2021-10-17] MEDS: hyDRALAzine 20 mg/mL INJ 1 mL 10 MG IVP ×2 (01:06→05:00)
[2021-10-17] MEDS: ipratropium-albuterol 3 mL Neb INHALATION ×3 (05:04→15:27)
[2021-10-17] MEDS: doxycycline 100 MG in sodium chloride 0.9% (plus) 100 ML IV ×2 (06:03→17:40)
[2021-10-17 06:23] LABS: Hematocrit 39.3 % (42.0-52.0); Mean Corpuscular HGB Conc 33.1 g/dL (30.0-36.0); Mean Corpuscular Hemoglobin 32.2 pg (28.0-34.0); Mean Corpuscular Volume 97.3 fl (80-94); Mean Platelet Volume 10.9 fL (7.4-10.4); Platelet Count 218 10^3/cmm (130-400); Red Blood Count 4.04 10^6/uL (4.1-5.3); Red Cell Distribution Width 16.3 % (12.1-15.1); White Blood Count 13.3 10^3/uL (4.0-10.0)
[2021-10-17 06:42] LABS: Alanine Aminotransferase 15 U/L (0-41); Albumin Level 4.1 g/dL (3.5-5.2); Alkaline Phosphatase 67 IU/L (40-130); Aspartate Amino Transferase 16 U/L (0-40); Blood Urea Nitrogen 29 mg/dL (8-23); Calcium 9.9 mg/dL (8.5-10.5); Carbon Dioxide 18 mmol/L (22-29); Chloride 104 mmol/L (98-107); Creatinine Clr Calc Pharmacy 90.4794; Globulin 3.3 g/dL (1.3-4.6); Glomerular Filtration Rate 96.7 mL/min (90-130); Glucose 125 mg/dL (65-115); Osmolality Calculated 289 mOsm/kg (285-295); Sodium 136 mmol/L (136-145); Total Bilirubin 0.2 mg/dL (0.15-1.2); Total Protein 7.4 g/dL (6.6-8.7)
[2021-10-17 06:43] LABS: Anion Gap 18.9 (5-19); Potassium 4.9 mmol/L (3.5-5.1)
[2021-10-17 07:02] LABS: Slide Review Slide Review Perform
[2021-10-17 07:04] LABS: Absolute Neutrophil 11.8 10^3/cmm (1.4-6.5); Band Neutrophils Absolute 0.8 10^3/cmm (0.0-1.2); Eosinophils 0 %; Lymphocytes 7 %; Lymphocytes Absolute 0.9 10^3/cmm (1.2-3.4); Monocytes Absolute 0.4 10^3/cmm (0.1-0.6); Platelet Estimate Normal (Normal); Segmented Neutrophils 83 %; Total Cells Counted 100 (0-100)
[2021-10-17] MEDS: nicotine 21 mg Patch 1 PATCH TRANSDERMA (09:53)
[2021-10-17] MEDS: NON-FORMULARY MEDICATION (Levocetirizine 5 mg tablet) 5 EACH PO (09:53)
[2021-10-17] MEDS: fluticasone nasal spray 16gm Btl 1 SPRAY NASAL (09:53)
[2021-10-17] MEDS: cloNIDine 0.1 mg Tablet PO ×3 (09:54→20:09)
[2021-10-17] MEDS: hyDRALAzine 25 mg Tablet PO ×3 (09:54→20:10)
[2021-10-17] MEDS: lisinopril 20 mg Tablet 40 MG PO (09:54)
[2021-10-17] MEDS: pantoprazole DR 40 mg Tablet PO (09:55)
[2021-10-17] MEDS: guaiFENesin 600 mg Tablet PO ×2 (09:55→17:40)
[2021-10-17] MEDS: sertraline 50 mg Tablet PO (09:55)
[2021-10-17] MEDS: spironolactone 25 mg Tablet PO (09:57)
[2021-10-17] MEDS: acetaminophen 325 mg Tablet 650 MG PO ×2 (10:49→20:16)
[2021-10-17] MEDS: lidocaine 2% viscous 15 ML, aluminum-mag hydrox-simethicon 30 ML, sucralfate oral liq 1 GM PO (11:14)
--- NOTE | 2021-10-17 11:45 | PM.PN ---
Subjective Subjective: Patient was seen this morning, he continues to complain of wheezing, shortness of breath, he is happy that his blood pressures are better under control, has a productive cough Vitals/I&O/Wt Last Vital Signs Temp 98.0 F 10/17/21 11:37 Pulse 92 10/17/21 11:37 Resp 20 H 10/17/21 11:37 BP 160/78 10/17/21 11:37 Pulse Ox 95 10/17/21 11:37 10/16/21 10/17/21 10/17/21 22:59 06:59 14:59 Intake Total 340 / 1060 340 / 340 Balance 340 / 1060 340 / 340 Weight last 48 hrs Weight 90.718 kg Weight 96.7 kg Weight 90.718 kg Physical Exam Const: COMMON NORMALS: no acute distress and patient oriented x3 Resp: COMMON NORMALS: normal respiratory effort, No retractions and No use of accessory muscles AUSCULTATION: wheezes Cardio: COMMON NORMALS: regular rate, regular rhythm, S1 normal heart sound present and S2 normal heart sound present RATE: regular rate RHYTHM: regular rhythm HEART SOUNDS: S1 normal heart sound present and S2 normal heart sound present GI: COMMON NORMALS: Normal to inspection, nondistended, normoactive bowel sounds present and Soft to palpation PALPATION: Yes Soft to palpation Extremity: COMMON NORMALS: no pedal edema Neuro: COMMON NORMALS: patient oriented x3 Psych: COMMON NORMALS: mental status grossly normal Data : 10/17/21 05:56 10/17/21 05:56 A&P Assessment and plan (1) Acute respiratory failure with hypoxemia: Continue doxycycline o, IV steroids for now, breathing treatments, collect sputum culture. Oxygen support, wean down as tolerated. He does not normally use oxygen, however, he may be needing it. Certainly wood-burning furnace at home, smoking are not helping. D-dimer 1.39, as he is clinically improving, I think he has a low likelihood of having a pulm emboli COVID PCR, patient refuses testing. Status: Acute (2) Acute exacerbation of chronic obstructive airways disease: As above. Status: Acute (3) COPD (chronic obstructive pulmonary disease): He states he is trying to get out to see pulmonology. May need oxygen at discharge. He lives in a camper with wood-burning furnace. Cooks with propane. States he would like to try to moved to the city to a senior citizens apartment. We will request case management consultation. Continue breathing treatments, continue Solu-Medrol Status: Acute (4) LUZ MARIA (obstructive sleep apnea): He has been intolerant of CPAP recently due to smoke. Stopped using it, but plans to resume using it in the future. Status: Acute (5) Smoking addiction: Discussed smoking cessation for 7 minutes. He states he has previously tried Wellbutrin and Chantix without success. Continue to encourage cessation. Will provide nicotine replacement. Status: Acute (6) Pituitary gland enlarged: Incidentally noted pituitary enlargement on CT head. Did not have time to visit this incidental finding currently. Please discuss prior to discharge, refer for additional work-up depending on goals of care. Status: Acute (7) Microscopic hematuria: Consider repeat UA to confirm resolution of hematuria, otherwise consider referral for additional work-up to exclude malignancy depending on goals of care. Status: Acute (8) Depression: He has recently been depressed, at odds with his family who he states do not want to see him. Denies suicidal ideation. He is not following with [facility], would recommend follow-up after discharge. He has tolerated Zoloft in the past, will restart medication. Status: Acute (9) HTN (hypertension): Elevated blood pressure in ER. He states he has not taken any of his medications today. He is running out of clonidine, he does have some lisinopril left. States he has had to take extra doses of medications due to blood pressures running high. Resume home medicines. Monitor blood pressure. Cardiac diet. Added hydralazine to blood pressure medications Status: Acute (10) Exertional dyspnea: With frequent falls recently. Some confusion. In addition to COPD for which he may require oxygen, consider also referral for nonurgent stress testing. He denies history of stenting or [place] in himself, but reports history of cardiovascular disease in the family, is also a long-term smoker with additional risk factors. PT, OT assessment. TSH is normal. Status: Acute Plan HLD Abdominal wall hernia Attestations Medical Necessity Statement*: Plan for today continue nebulizer treatments, continue antibiotics, continue steroids, monitor clinically home for discharge in the next 3 to 4 hours, patient requires hospitalization for exacerbation Coding Level of Care Code Acute Fulfillment Specialist for Chg Fwd Diagnoses Acute respiratory failure with hypoxemia J96.01 Acute exacerbation of chronic obstructive airways disease J44.1 COPD (chronic obstructive pulmonary disease) J44.9 LUZ MARIA (obstructive sleep apnea) G47.33 Smoking addiction F17.200 Pituitary gland enlarged E23.6 Microscopic hematuria R31.29 Depression F32.A HTN (hypertension) I10 Exertional dyspnea R06.00
--- NOTE | 2021-10-17 16:29 | PC.NURSE ---
Took over care for patient at 1630. Report given by ROMÁN Gordon. Will continue to care for patient and give report to night nurse.
[2021-10-17] MEDS: enoxaparin 40 mg/0.4 mL Syringe SUBCUT (20:09)
[2021-10-18] VITALS (15 sets, daily range): BP systolic 175–188; BP diastolic 83–98; PULSE 69–91; RESP 16–20; TEMP 36.4–37.1; O2SAT 93–97
[2021-10-18] MEDS: hyDRALAzine 20 mg/mL INJ 1 mL 10 MG IVP (00:29)
[2021-10-18] MEDS: ipratropium-albuterol 3 mL Neb INHALATION ×3 (04:14→15:06)
[2021-10-18] MEDS: doxycycline 100 MG in sodium chloride 0.9% (plus) 100 ML IV (05:52)
[2021-10-18 06:10] LABS: Basophils % 0.2 %; Hematocrit 42.1 % (42.0-52.0); Hemoglobin 13.3 g/dL (11.7-16.6); Lymphocytes # 0.7 10^3/uL (0.8-4.8); Lymphocytes % 5.8 %; Mean Corpuscular HGB Conc 31.6 g/dL (30.0-36.0); Mean Corpuscular Hemoglobin 31.8 pg (28.0-34.0); Mean Corpuscular Volume 100.7 fl (80-94); Mean Platelet Volume 9.3 fL (7.4-10.4); Monocytes # 0.4 10^3/uL (0.2-0.9); Monocytes % 3.2 %; Neutrophils # 10.51 10^3/uL (1.8-7.7); Neutrophils % 88.4 %; Nucleated Red Blood Cells % 0 %; Platelet Count 322 10^3/cmm (130-400); Red Blood Count 4.18 10^6/uL (4.1-5.3); Red Cell Distribution Width 16.6 % (12.1-15.1); White Blood Count 11.9 10^3/uL (4.0-10.0)
[2021-10-18 06:30] LABS: Alanine Aminotransferase 34 U/L (0-41); Albumin Level 4.1 g/dL (3.5-5.2); Alkaline Phosphatase 63 IU/L (40-130); Anion Gap 16.2 (5-19); Aspartate Amino Transferase 28 U/L (0-40); Blood Urea Nitrogen 24 mg/dL (8-23); Calcium 9.3 mg/dL (8.5-10.5); Carbon Dioxide 20 mmol/L (22-29); Chloride 101 mmol/L (98-107); Creatinine Clr Calc Pharmacy 90.4794; Globulin 2.8 g/dL (1.3-4.6); Glomerular Filtration Rate 96.7 mL/min (90-130); Glucose 148 mg/dL (65-115); Osmolality Calculated 283 mOsm/kg (285-295); Potassium 4.2 mmol/L (3.5-5.1); Sodium 133 mmol/L (136-145); Total Bilirubin 0.2 mg/dL (0.15-1.2); Total Protein 6.9 g/dL (6.6-8.7)
[2021-10-18] MEDS: hyDRALAzine 25 mg Tablet 50 MG PO ×2 (09:06→16:00)
[2021-10-18] MEDS: sertraline 50 mg Tablet PO (09:07)
[2021-10-18] MEDS: guaiFENesin 600 mg Tablet PO (09:07)
[2021-10-18] MEDS: cloNIDine 0.1 mg Tablet PO ×2 (09:07→16:00)
[2021-10-18] MEDS: spironolactone 25 mg Tablet 50 MG PO (09:07)
[2021-10-18] MEDS: lisinopril 20 mg Tablet 40 MG PO (09:07)
[2021-10-18] MEDS: nicotine 21 mg Patch 1 PATCH TRANSDERMA (09:07)
[2021-10-18] MEDS: pantoprazole DR 40 mg Tablet PO (09:08)
[2021-10-18] MEDS: NON-FORMULARY MEDICATION (Levocetirizine 5 mg tablet) 5 EACH PO (09:10)
--- NOTE | 2021-10-18 10:10 | P.DS_ITS ---
Discharge Providers Date of Admission: 10/16/21 13:00 Date of Discharge: October 18, 2021 Attending Provider at Admission: Abel Franco Attending Provider at Discharge: Jovanni Farrell MD Diagnoses at Discharge Discharge Diagnosis (1) Acute respiratory failure with hypoxemia: Status: Acute (2) Acute exacerbation of chronic obstructive airways disease: Status: Acute (3) COPD (chronic obstructive pulmonary disease): Status: Acute (4) LUZ MARIA (obstructive sleep apnea): Status: Acute (5) Smoking addiction: Status: Acute (6) Pituitary gland enlarged: Status: Acute (7) Microscopic hematuria: Status: Acute (8) Depression: Status: Acute (9) HTN (hypertension): Status: Acute (10) Exertional dyspnea: Status: Acute Reason for Visit Reason for Visit: ELEVATED BLOOD PRESSURE Hospital Course Hospital Course This is a 66-year-old male with a past medical history of COPD, smoking, hypertension, hyperlipidemia, diabetes, LUZ MARIA, recent history of smoke exposure who presents [facility] due to shortness of breath Patient presents [facility] for acute respiratory failure with hypoxia secondary to COPD exacerbation he received steroid therapy, doxycycline, oxygen therapy and clinically monitored. Patient clinically improved, ambulating without significant symptomatology, wheezing resolved, weaned down to room air. He was discharged with instructions to stop smoking, prednisone burst, Advair, albuterol, with a follow-up with pulmonary as outpatient Patient was also found to have a incidentally enlarged pituitary gland on CT of the head, will have patient follow-up with neurology as outpatient Patient was also found to have elevated blood pressures during his hospitalizations, discharged on hydralazine 50 3 times daily, clonidine 0.1 3 times daily, Aldactone 50 mg once daily. Follow-up with primary care provider in 1 week Physical Exam Const: COMMON NORMALS: no acute distress and patient oriented x3 Resp: COMMON NORMALS: normal respiratory effort, No retractions, No use of accessory muscles and clear to auscultation bilaterally AUSCULTATION: clear to auscultation bilaterally Cardio: COMMON NORMALS: regular rate, regular rhythm, S1 normal heart sound present and S2 normal heart sound present RATE: regular rate RHYTHM: regular rhythm HEART SOUNDS: S1 normal heart sound present and S2 normal heart sound present GI: COMMON NORMALS: Normal to inspection, nondistended, normoactive bowel sounds present, Soft to palpation and non-tender PALPATION: Yes Soft to palpation Extremity: COMMON NORMALS: no pedal edema Neuro: COMMON NORMALS: patient oriented x3 Psych: COMMON NORMALS: mental status grossly normal Discharge Data Studies Completed and Pending Completed Studies During Hospitalization Category Date Time Status CT head wo con* [id number] Urgent Cat Scan 10/15/21 15:00 Completed XR chest 1V portable [id number] Urgent Exams 10/15/21 15:00 Completed Pending at discharge Category Date Time Status COVID OZH [Coronavirus PCR] Stat Lab 10/15/21 17:34 Uncollected Sputum Culture and Gram Stain Routine Lab 10/15/21 20:04 Uncollected Radiology Impressions Chest X-Ray 10/15/21 15:00 IMPRESSION: No acute findings. Head CT 10/15/21 15:00 IMPRESSION: 1. No acute intracranial abnormality. 2. Moderate diffuse cerebral atrophy and sequela of chronic small vessel ischemic disease. 3. Enlargement of the pituitary gland. Findings could be indicative of a macroadenoma or hyperplasia. This can be further characterized with pituitary protocol MRI as clinically indicated. Laboratory Results WBC 11.9 10^3/uL (4.0-10.0) H 10/18/21 05:26 RBC 4.18 10^6/uL (4.1-5.3) 10/18/21 05:26 Hgb 13.3 g/dL (11.7-16.6) 10/18/21 05:26 Hct 42.1 % (42.0-52.0) 10/18/21 05:26 MCV 100.7 fl (80-94) H 10/18/21 05:26 MCH 31.8 pg (28.0-34.0) 10/18/21 05:26 MCHC 31.6 g/dL (30.0-36.0) 10/18/21 05:26 RDW 16.6 % (12.1-15.1) H 10/18/21 05:26 Plt Count 322 10^3/cmm (130-400) D 10/18/21 05:26 MPV 9.3 fL (7.4-10.4) 10/18/21 05:26 Neut % (Auto) 88.4 % 10/18/21 05:26 Lymph % (Auto) 5.8 % 10/18/21 05:26 [place] % (Auto) 3.2 % 10/18/21 05:26 Eos % (Auto) 0.0 % 10/18/21 05:26 Baso % (Auto) 0.2 % 10/18/21 05:26 Neut # (Auto) 10.51 10^3/uL (1.8-7.7) H 10/18/21 05:26 Lymph # (Auto) 0.7 10^3/uL (0.8-4.8) L 10/18/21 05:26 [place] # (Auto) 0.4 10^3/uL (0.2-0.9) 10/18/21 05:26 Eos # (Auto) 0.0 10^3/uL (0.0-0.8) 10/18/21 05:26 Baso # (Auto) 0.0 10^3/uL (0.0-0.1) 10/18/21 05:26 Nucleated RBC % (auto) 0 % 10/18/21 05:26 Total Counted 100 (0-100) 10/17/21 05:56 Atypical Lymphs % 0.0 % (0-5) 10/17/21 05:56 Absolute Neutrophils 11.8 10^3/cmm (1.4-6.5) H 10/17/21 05:56 Segmented Neutrophils 83 % 10/17/21 05:56 Abs Segm Neuts (Man) 11.0 10/cmm (1.6-7.1) H 10/17/21 05:56 Band Neutrophils 6.0 % 10/17/21 05:56 Abs Band Neuts (Man) 0.8 10^3/cmm (0.0-1.2) 10/17/21 05:56 Absolute Lymphocytes 0.9 10^3/cmm (1.2-3.4) L 10/17/21 05:56 Lymphocytes (Manual) 7 % 10/17/21 05:56 Monocytes (Manual) 3.0 % 10/17/21 05:56 Absolute Monocytes 0.4 10^3/cmm (0.1-0.6) 10/17/21 05:56 Eosinophils (Manual) 0 % 10/17/21 05:56 Absolute Eosinophils 0.0 10^3/cmm (0.0-0.7) 10/17/21 05:56 Basophils (Manual) 0.0 % 10/17/21 05:56 Absolute Basophils 0.0 10^3/cmm (0.0-0.2) 10/17/21 05:56 Myelocytes 1.0 % 10/17/21 05:56 Nucleated RBCs # 0.0 /100WBC 10/18/21 05:26 Platelet Estimate Normal (Normal) 10/17/21 05:56 D-Dimer 1.36 ug/mIFEU (0-0.59) H 10/15/21 21:20 Specimen Type Arterial 10/15/21 15:54 Sample Site Brachial, left 10/15/21 15:54 ABG pH 7.40 (7.35-7.45) 10/15/21 15:54 ABG pCO2 37.7 mmHg (35-45) 10/15/21 15:54 ABG pO2 62.8 mmHg (80.0-100.0) L 10/15/21 15:54 ABG HCO3 23.5 mmol/L (22-26) 10/15/21 15:54 ABG O2 Saturation 92.3 10/15/21 15:54 ABG Base Excess -1.0 mmol/L (-2.0-2.0) 10/15/21 15:54 Yehuda Test N/a 10/15/21 15:54 A-a O2 Gradient 5.2 mmHg (5-10) 10/15/21 15:54 Hematocrit 40.7 % (42-52) L 10/15/21 15:54 Hgb O2 Saturation 87.0 % (95-100) L 10/15/21 15:54 Carboxyhemoglobin 4.9 %THgb (0.4-20.1) 10/15/21 15:54 Methemoglobin 0.9 % (0.4-1.5) 10/15/21 15:54 Total Hemoglobin 13.3 g/dL (14-18) L 10/15/21 15:54 Sodium 138.0 mmol/L (131-143) 10/15/21 15:54 Potassium 3.9 mmol/L (3.5-5.0) 10/15/21 15:54 Glucose 99.0 mg/dL (70-115) 10/15/21 15:54 Ionized Calcium 1.2 mmol/L (1.1-1.4) 10/15/21 15:54 O2 Delivery Device Nc 10/15/21 15:54 O2 Liters/Min 3.0 % 10/15/21 15:54 Assembler [employer] Buildings ID [place] 10/15/21 15:54 Sodium 133 mmol/L (136-145) L 10/18/21 05:26 Potassium 4.2 mmol/L (3.5-5.1) 10/18/21 05:26 Chloride 101 mmol/L (98-107) 10/18/21 05:26 Carbon Dioxide 20 mmol/L (22-29) L 10/18/21 05:26 Anion Gap 16.2 (5-19) 10/18/21 05:26 BUN 24 mg/dL (8-23) H 10/18/21 05:26 Creatinine 0.8 mg/dL (0.7-1.2) 10/18/21 05:26 GFR Calculation 96.7 mL/min (90-130) 10/18/21 05:26 Glucose 148 mg/dL (65-115) H 10/18/21 05:26 POC Glucose 170 mg/dL (70-110) H 10/16/21 16:56 Calculated Osmolality 283 mOsm/kg (285-295) L 10/18/21 05:26 Calcium 9.3 mg/dL (8.5-10.5) 10/18/21 05:26 Total Bilirubin 0.2 mg/dL (0.15-1.2) 10/18/21 05:26 AST 28 U/L (0-40) 10/18/21 05:26 ALT 34 U/L (0-41) 10/18/21 05:26 Alkaline Phosphatase 63 IU/L (40-130) 10/18/21 05:26 Ammonia 23 umol/L (16-60) 10/15/21 15:38 Troponin T Baseline 13 ng/L (0-15) 10/15/21 15:09 Troponin T 120 Minute 12.44 ng/L (0-15) 10/15/21 16:59 Delta Troponin T -0.56 ABS# (0-10) L 10/15/21 16:59 Troponin T Hi Sens 6Hr 10.37 ng/L (0-15) 10/15/21 21:20 Troponin T Hi Sens 6Hr Delta Not Reportable 10/15/21 21:20 NT-Pro-B Natriuret Pep 635 pg/mL (0-125) H 10/15/21 15:09 Total Protein 6.9 g/dL (6.6-8.7) 10/18/21 05:26 Albumin 4.1 g/dL (3.5-5.2) 10/18/21 05:26 Globulin 2.8 g/dL (1.3-4.6) 10/18/21 05:26 TSH 1.47 uIU/mL (0.27-4.20) 10/15/21 15:09 Urine Color Yellow (Yellow) 10/15/21 18:00 Urine Appearance Clear (CLEAR) 10/15/21 18:00 Urine pH 5 (5-7) 10/15/21 18:00 Ur Specific [place] 1.015 (1.005-1.030) 10/15/21 18:00 Urine Protein Neg (Negative) 10/15/21 18:00 Urine Glucose (UA) Norm (Normal) 10/15/21 18:00 Urine Ketones Negative (Negative) 10/15/21 18:00 Urine Blood 2+ (Negative) H 10/15/21 18:00 Urine Nitrate Negative (Negative) 10/15/21 18:00 Urine Bilirubin Neg (Negative) 10/15/21 18:00 Urine Urobilinogen Norm mg/dL (Negative) 10/15/21 18:00 Ur Leukocyte Esterase Negative (Negative) 10/15/21 18:00 Urine RBC 5-10 /hpf (0-2) H 10/15/21 18:00 Urine WBC None /hpf (0-5) 10/15/21 18:00 Ur Squamous Epith Cells Rare /hpf (0-5) 10/15/21 18:00 Amorphous Sediment Not Reportable 10/15/21 18:00 Urine Bacteria None /hpf (NONE) 10/15/21 18:00 Vitals Last Vital Signs Temp 97.6 F 10/18/21 03:26 Pulse 90 10/18/21 09:23 Resp 17 10/18/21 09:16 BP 188/98 10/18/21 09:07 Pulse Ox 96 10/18/21 09:16 Discharge Plan Discharge Patient Disposition: Home Condition: Stable Prescriptions: New sertraline 50 mg Tablet 50 mg PO DAILY 30 Days Qty: 30 0RF nicotine 21 mg/24 hr Patch 24 Hour 1 patch transdermal DAILY 28 Days Qty: 28 0RF fluticasone propionate 50 mcg/actuation [place],Suspension 1 spray nasal BID PRN (Reason: congestion) Qty: 16 0RF guaifenesin [Mucinex] 600 mg Tablet Extended Release 12hr 600 mg PO BID 5 Days Qty: 10 0RF hydralazine 25 mg Tablet 50 mg PO TID 30 Days Qty: 180 0RF albuterol sulfate 90 mcg/actuation HFA aerosol inhaler 1 inh inhalation Q6H PRN (Reason: shortness of breath or wheezing) Qty: 8.5 0RF doxycycline hyclate 100 mg tablet 100 mg PO BID 5 Days Qty: 10 0RF fluticasone propion-salmeterol [Advair Diskus] 250-50 mcg/dose blister with device 1 inh inhalation BID Qty: 60 0RF prednisone 20 mg tablet 20 mg PO BID 5 Days Qty: 10 0RF spironolactone 25 mg Tablet 50 mg PO DAILY 30 Days Qty: 30 0RF Continued Vitamin C 500 mg Tablet 500 mg PO DAILY 0RF albuterol sulfate 90 mcg/actuation HFA aerosol inhaler 2 puff INHALATION Q4H PRN (Reason: Shortness Of Breath) 0RF Symbicort 160-4.5 mcg/actuation HFA aerosol inhaler 1 puff INHALATION BID 0RF levocetirizine 5 mg tablet 5 mg PO DAILY 0RF clonidine HCl 0.1 mg tablet 0.1 mg PO TID 30 Days Qty: 90 0RF lisinopril 40 mg tablet 40 mg PO DAILY 30 Days Qty: 30 0RF Discontinued aspirin 325 mg Tablet 650 mg PO Q6H PRN (Reason: arthritis) 0RF Discharge Orders: Discharge Order (Routine); Ordered 10/18/21 Ordered By: Jovanni Farrell Referrals: Monique Damon MD [Physician] - 2 weeks Datar,Jose Miguel Velasquez MD [Physician] - 1 week Discharge Diet: Cardiac Discharge Activity: Resume usual activity Patient Instructions: Opioid Safety Activity Restrictions/Additional Instructions: - Advised to quit smoking -Needs to take inhalers as prescribed -Take steroids as prescribed -Take antibiotics as prescribed -Take blood pressure medication as prescribed -Follow-up primary care in 1 week for recheck blood pressure Discharge Attestations Time Spent in Discharge Care*: less than 30 min Quality Metrics Clinical Quality Measures [ No reported AMI, CVA or VTE this stay] Coding Level of Care Code Acute Chg FW DC note Diagnoses Acute respiratory failure with hypoxemia J96.01 Acute exacerbation of chronic obstructive airways disease J44.1 COPD (chronic obstructive pulmonary disease) J44.9 LUZ MARIA (obstructive sleep apnea) G47.33 Smoking addiction F17.200 Pituitary gland enlarged E23.6 Microscopic hematuria R31.29 Depression F32.A HTN (hypertension) I10 Exertional dyspnea R06.00
[2021-10-18] MEDS: metoprolol tartrate 25 mg Tablet PO (13:34)
--- NOTE | 2021-10-18 16:14 | PC.NURSE ---
Discharge teaching and education given to patient, all questions were answered at this time. IV discontinued. Patients blood pressure still slightly elevated, MD aware, meds adjusted and education given. Medications sent to preferred pharmacy. Belongings accounted for including medications in pyxis.
== END 2021-10-18 17:00 | disposition home or self-care (01) | DRG 190 ==
LOC: ER 18:33 → MEDSURG 18:41
PROVIDERS: Admitting Provider Internal Medicine; Emergency Provider Emergency Medicine; Visit Provider Family Medicine
DX: J44.1 Chronic obstructive pulmonary disease with (acute) exacerbation (principal); J96.01 Acute respiratory failure with hypoxia; E78.5 Hyperlipidemia, unspecified; G47.33 Obstructive sleep apnea (adult) (pediatric); I10 Essential (primary) hypertension; E23.6 Other disorders of pituitary gland; F17.200 Nicotine dependence, unspecified, uncomplicated; F32.A Depression, unspecified; R31.29 Other microscopic hematuria
CPT/HCPCS: 36415; 36416; 36600; 70450; 71045; 80051; 80053; 81001; 82140; 82330; 82805; 82962; 83880; 84443; 84484; 85007; 85025; 85378; 93005; 94640; 94664; 96365; 96372; 96375; 97165; 99285; G0378; J0360; J1650; J2920; J2930; J3490

== ENCOUNTER → 2021-12-08 10:37 | Outpatient (BNVA) | payer MEDICARE, SELFPAY | PROVIDERS: PCP Nurse Practitioner Family; Visit Provider Internal Medicine Critical Care Medicine | DX: J44.9 Chronic obstructive pulmonary disease, unspecified (principal); G47.33 Obstructive sleep apnea (adult) (pediatric); F17.210 Nicotine dependence, cigarettes, uncomplicated; I10 Essential (primary) hypertension; E78.5 Hyperlipidemia, unspecified | CPT/HCPCS: 99204 ==